=== PATIENT | female | born 1950 | race Caucasian/White ===

== ENCOUNTER 2017-07-12 15:05 | Outpatient (RCR) | payer MEDICARE, OTHER, SELFPAY | END 2017-07-12 23:59 | LOC: PT.CARL 15:05 | PROVIDERS: Referring Provider Orthopaedic Surgery Sports Medicine; Visit Provider Orthopaedic Surgery Sports Medicine | DX: M25.512 Pain in left shoulder (principal); Z47.1 Aftercare following joint replacement surgery | CPT/HCPCS: G8984; G8985; G8986; 97110; 97161 ==

== ENCOUNTER 2017-09-12 13:00 | Outpatient (RCR) | payer MEDICARE, OTHER, SELFPAY ==
--- NOTE | 2017-10-17 15:14 | [facility]H.RHOPSOAP ---
Rehab OP Soap Note Rehab OP SOAP Start: 07/18/17 11:07 Freq: Status: Active Protocol: Document 07/18/17 11:07 JULY (Rec: 07/18/17 11:11 JULY [id number]) Electronically Signed By Claribel Luis, PT 07/18/17 11:07 Rehab OP SOAP Subjective Subjective it feels good; just a little soreness Objective Objective Notes Worked on exercises per EFS. Added big gym ball rolling on elevating table, 2 ways, wall ladder 4x, up to level 21, wall washing , advanced rowing to yellow TB (dispensed ). Ice to left shoulder after ther ex Assessment Tolerated Treatment Well Plan Plan Continue with POC Therapy time and Billing Physical Therapy Treatment Start Time 10:00 Physical Therapy Treatment End Time 11:10 Total Treatment Time 70 Therex Time Spent (minutes) 60 Therex Billing Units 4 Medicare? Yes Document 07/24/17 12:45 JULY (Rec: 07/24/17 12:52 JULY [id number]) Electronically Signed By Claribel Luis, PT 07/24/17 12:45 Rehab OP SOAP Subjective Subjective it's not hurting. I worked out at the gym this morning Objective Objective Notes pt worked on exercises: R/S l1.5x 10 min pullies 3 & 3 shoulder circles 10 & 10 PNF D1, D2 10x wall slides finger ladder 10x tall pole 3min flex, 3 min abd cane exercises in stand positional pec major & minor stretch scapular retraction air pump 10x ball rolling flex, abd (gym ball on elevating table) scar massage Assessment Tolerated Treatment Well Plan Plan Continue with POC Therapy time and Billing Physical Therapy Treatment Start Time 11:00 Physical Therapy Treatment End Time 11:15 Total Treatment Time 75 Therex Time Spent (minutes) 60 Therex Billing Units 4 Manual Therapy Time Spent (minutes) 10 Manual Therapy Billing Units 11 Medicare? Yes Document 08/07/17 14:16 JULY (Rec: 08/07/17 14:29 JULY [id number]) Electronically Signed By Claribel Luis, PT 08/07/17 14:16 Rehab OP SOAP Subjective Subjective
== END 2017-09-12 16:57 | disposition home or self-care (01) ==
LOC: PT 13:00
PROVIDERS: Visit Provider Orthopaedic Surgery Sports Medicine
DX: Z47.1 Aftercare following joint replacement surgery (principal); M25.512 Pain in left shoulder
CPT/HCPCS: 97110; 97140; 97164

== ENCOUNTER → 2020-03-08 10:31 | Outpatient (CLI) | payer MEDICARE, SELFPAY ==
[2020-03-08 14:14] LABS: Hemoglobin A1C 6.2 % (4.0-6.0)
[2020-03-08 14:18] LABS: Free T4 (Free Thyroxine) 1.15 ng/dl (0.78-2.19)
[2020-03-08 14:32] LABS: Thyroid Stimulating Hormone 3.21 uIU/mL (0.465-4.68)
== END ==
PROVIDERS: Visit Provider Pediatrics Pediatric Endocrinology
DX: E03.9 Hypothyroidism, unspecified (principal); R73.03 Prediabetes
CPT/HCPCS: 36415; 83036; 84439; 84443

== ENCOUNTER → 2021-08-23 07:58 | Outpatient (CLI) | payer MEDICARE, SELFPAY ==
[2021-08-23 14:57] LABS: Chloride 104 mmol/L (98-107); Potassium 4.7 mmoL/L (3.5-5.1); Sodium 137 mmol/L (136-145)
[2021-08-23 15:00] LABS: Alanine Aminotransferase 21 U/L (12-78); Albumin Level 4.4 g/dl (3.5-5.0); Albumin/Globulin Ratio 1.8 (1.1-1.8); Alkaline Phosphatase 81 U/L (38-126); Anion Gap 12.7 mEq/L (5-15); Aspartate Amino Transferase 35 U/L (14-36); Bilirubin,Total 0.4 mg/dl (0.2-1.3); Blood Urea Nitrogen 15 mg/dl (7-17); Carbon Dioxide 25 mmol/L (22.0-30.0); Estimated Glomerular Filt Rate 99 ml/min (>60); GFR (African American) 120 ML/MIN (>60); Globulin 2.5 g/dL (1.3-3.2); Total Protein,Serum 6.9 g/dl (6.3-8.2)
[2021-08-23 15:01] LABS: Calcium 9.3 mg/dl (8.4-10.2); Glucose 104 mg/dl (74-100)
[2021-08-23 15:15] LABS: Free T4 (Free Thyroxine) 1.54 ng/dl (0.78-2.19)
[2021-08-23 15:28] LABS: Thyroid Stimulating Hormone 0.99 uIU/mL (0.465-4.68)
== END ==
PROVIDERS: Visit Provider Internal Medicine
DX: R73.01 Impaired fasting glucose (principal); E03.9 Hypothyroidism, unspecified
CPT/HCPCS: 36415; 80053; 83036; 84439; 84443

== ENCOUNTER → 2022-03-23 10:47 | Outpatient (CLI) | payer MEDICARE, SELFPAY ==
[2022-03-24 09:32] LABS: Calcium 9.3 mg/dl (8.4-10.2)
== END ==
PROVIDERS: PCP Internal Medicine; Visit Provider Internal Medicine
DX: E83.52 Hypercalcemia (principal)
CPT/HCPCS: 36415; 82310; 82330; 83970